=== PATIENT | female | born 1940 | race Caucasian/White ===

== ENCOUNTER 2021-06-29 14:20 | Inpatient (IN) ==
[2021-06-30] MEDS ORDERED: Famotidine 20 MG/2 ML VIAL IVP SCH (18:00)
[2021-06-30] MEDS ORDERED: Famotidine 20 MG TABLET PO ONE (22:30)
[2021-06-30] MEDS ORDERED: amLODIPine 5 MG TABLET PO ONE (22:45)
[2021-06-30] MEDS: Sucralfate 1 GM TABLET PO SCH (22:52)
[2021-06-30] MEDS: tiZANidine 4 MG TABLET PO SCH (22:52)
[2021-06-30] MEDS: Latanoprost 2.5 ML BOTTLE LEFT EYE SCH (22:52)
[2021-07-01] MEDS ORDERED: Famotidine 20 MG TABLET PO ONE (06:00)
[2021-07-01] MEDS: Aspirin 81 MG TAB.CHEW PO SCH (09:25)
[2021-07-01] MEDS: Loratadine 10 MG TABLET PO SCH (09:25)
[2021-07-01] MEDS: Sucralfate 1 GM TABLET PO SCH ×2 (09:25→21:57)
[2021-07-01] MEDS: polyethylene glycoL 3350 17 GM POWD.PACK PO SCH (09:25)
[2021-07-01] MEDS ORDERED: Ondansetron 4 MG/2 ML VIAL ONE (09:48)
[2021-07-01] MEDS: Ondansetron 4 MG/2 ML VIAL IVP PRN (09:53)
[2021-07-01] MEDS: Famotidine 20 MG/2 ML VIAL IVP SCH (16:37)
[2021-07-01] MEDS ORDERED: amLODIPine 5 MG TABLET PO ONE (21:30)
[2021-07-01] MEDS: tiZANidine 4 MG TABLET PO SCH (21:58)
[2021-07-01] MEDS: Latanoprost 2.5 ML BOTTLE LEFT EYE SCH (21:58)
[2021-07-02] MEDS ORDERED: *HR* Enoxaparin 40 MG/0.4 ML SYRINGE SQ SCH (06:00)
[2021-07-02] MEDS: Famotidine 20 MG/2 ML VIAL IVP SCH ×2 (06:12→16:24)
[2021-07-02 07:16] LABS: Basophils % 0.2 %; Eosinophils # 0.1 K/mcL (0.0-0.6); Eosinophils % 1.7 %; Hemoglobin 8.3 g/dL (11.5-15.4); Lymphocytes # 1.9 K/mcL (0.6-4.6); Lymphocytes % 45.6 %; Mean Corpuscular HGB Conc 33.2 g/dL (31.6-35.5); Mean Corpuscular Hemoglobin 32.7 pg (28.0-33.3); Mean Corpuscular Volume 98.4 fL (83.0-100.0); Mean Platelet Volume 9.9 fL (9.4-12.4); Monocytes # 0.5 K/mcL (0.0-1.3); Monocytes % 12.7 %; Neutrophils # 1.7 K/mcL (1.6-8.9); Platelet Count 192 K/mcL (140-400); Red Blood Count 2.54 M/mcL (3.82-4.97); Red Cell Distribution Width 12.9 % (11.5-14.5); Segmented Neutrophils % 39.8 %; White Blood Count 4.2 K/mcL (4.3-11.1)
[2021-07-02] MEDS: polyethylene glycoL 3350 17 GM POWD.PACK PO SCH ×2 (09:08→16:58)
[2021-07-02] MEDS: Aspirin 81 MG TAB.CHEW PO SCH (09:08)
[2021-07-02] MEDS: Loratadine 10 MG TABLET PO SCH (09:09)
[2021-07-02] MEDS: amLODIPine 5 MG TABLET PO SCH (09:09)
[2021-07-02] MEDS: Sucralfate 1 GM TABLET PO SCH ×2 (09:09→22:59)
[2021-07-02 09:13] LABS: Iron 45 mcg/dL (50-170)
[2021-07-02] MEDS: Ondansetron 4 MG/2 ML VIAL IVP PRN (18:38)
[2021-07-02] MEDS ORDERED: *HR* Promethazine 25 MG/ML VIAL IM ONE (22:31)
[2021-07-02] MEDS: tiZANidine 4 MG TABLET PO SCH (22:50)
[2021-07-02] MEDS: Latanoprost 2.5 ML BOTTLE LEFT EYE SCH (22:59)
[2021-07-03] MEDS: Famotidine 20 MG/2 ML VIAL IVP SCH ×2 (06:06→19:37)
[2021-07-03] MEDS: Aspirin 81 MG TAB.CHEW PO SCH (10:07)
[2021-07-03] MEDS: Sucralfate 1 GM TABLET PO SCH ×2 (10:07→21:04)
[2021-07-03] MEDS: Loratadine 10 MG TABLET PO SCH (10:08)
[2021-07-03] MEDS: polyethylene glycoL 3350 17 GM POWD.PACK PO SCH (10:08)
[2021-07-03] MEDS: amLODIPine 5 MG TABLET PO SCH (10:09)
[2021-07-03] MEDS: Latanoprost 2.5 ML BOTTLE LEFT EYE SCH (21:04)
[2021-07-03] MEDS: tiZANidine 4 MG TABLET PO SCH (21:04)
[2021-07-04] MEDS: Famotidine 20 MG/2 ML VIAL IVP SCH ×2 (06:27→18:54)
[2021-07-04] MEDS: Sucralfate 1 GM TABLET PO SCH ×2 (09:17→20:55)
[2021-07-04] MEDS: Aspirin 81 MG TAB.CHEW PO SCH (09:17)
[2021-07-04] MEDS: amLODIPine 5 MG TABLET PO SCH (09:17)
[2021-07-04] MEDS: Loratadine 10 MG TABLET PO SCH (09:17)
[2021-07-04] MEDS: polyethylene glycoL 3350 17 GM POWD.PACK PO SCH (09:18)
[2021-07-04] MEDS: tiZANidine 4 MG TABLET PO SCH (20:54)
[2021-07-04] MEDS: Latanoprost 2.5 ML BOTTLE LEFT EYE SCH (20:57)
[2021-07-05 02:50] LABS: % Iron Saturation 20 % (15-50); Transferrin 159 mg/dL (203-362)
[2021-07-05] MEDS: Famotidine 20 MG/2 ML VIAL IVP SCH ×2 (06:12→17:02)
[2021-07-05] MEDS: Sucralfate 1 GM TABLET PO SCH ×2 (09:28→20:57)
[2021-07-05] MEDS: amLODIPine 5 MG TABLET PO SCH (09:28)
[2021-07-05] MEDS: Aspirin 81 MG TAB.CHEW PO SCH (09:28)
[2021-07-05] MEDS: polyethylene glycoL 3350 17 GM POWD.PACK PO SCH (09:28)
[2021-07-05] MEDS: Loratadine 10 MG TABLET PO SCH (09:28)
[2021-07-05] MEDS: tiZANidine 4 MG TABLET PO SCH (20:58)
[2021-07-05] MEDS: Latanoprost 2.5 ML BOTTLE LEFT EYE SCH (21:05)
[2021-07-06] MEDS: Famotidine 20 MG/2 ML VIAL IVP SCH ×2 (06:30→18:29)
[2021-07-06] MEDS: amLODIPine 5 MG TABLET PO SCH (08:59)
[2021-07-06] MEDS: Sucralfate 1 GM TABLET PO SCH ×2 (08:59→20:27)
[2021-07-06] MEDS: polyethylene glycoL 3350 17 GM POWD.PACK PO SCH (08:59)
[2021-07-06] MEDS: Aspirin 81 MG TAB.CHEW PO SCH (08:59)
[2021-07-06] MEDS: Loratadine 10 MG TABLET PO SCH (08:59)
[2021-07-06] MEDS: Sennosides/Docusate Sodium TABLET PO SCH ×2 (12:28→20:27)
[2021-07-06] MEDS: tiZANidine 4 MG TABLET PO SCH (20:27)
[2021-07-06] MEDS: Latanoprost 2.5 ML BOTTLE LEFT EYE SCH (20:33)
[2021-07-07 05:43] LABS: Hemoglobin 8.2 g/dL (11.5-15.4); Mean Corpuscular HGB Conc 32.8 g/dL (31.6-35.5); Mean Corpuscular Hemoglobin 32.5 pg (28.0-33.3); Mean Corpuscular Volume 99.2 fL (83.0-100.0); Mean Platelet Volume 9.9 fL (9.4-12.4); Platelet Count 241 K/mcL (140-400); Red Blood Count 2.52 M/mcL (3.82-4.97); Red Cell Distribution Width 12.7 % (11.5-14.5); White Blood Count 4.9 K/mcL (4.3-11.1)
[2021-07-07] MEDS: Famotidine 20 MG/2 ML VIAL IVP SCH (06:22)
[2021-07-07 06:57] LABS: BUN/Creatinine Ratio 26 (6-26); Blood Urea Nitrogen 14 mg/dL (8-23); Calcium 8.3 mg/dL (8.6-10.3); Carbon Dioxide 26 mEq/L (23-29); Chloride 106 mEq/L (98-107); Glucose 86 mg/dL (70-105); Osmolality,Calculated 286 (280-300); Potassium 3.4 mEq/L (3.5-5.1); Sodium 138 mEq/L (136-145); eGFR For African Americans > 60 (> 60); eGFR For Non-African Americans > 60 (> 60)
[2021-07-07] MEDS: Sucralfate 1 GM TABLET PO SCH ×2 (08:32→20:52)
[2021-07-07] MEDS: Sennosides/Docusate Sodium TABLET PO SCH ×2 (08:32→20:53)
[2021-07-07] MEDS: polyethylene glycoL 3350 17 GM POWD.PACK PO SCH (08:32)
[2021-07-07] MEDS: Aspirin 81 MG TAB.CHEW PO SCH (08:32)
[2021-07-07] MEDS: Loratadine 10 MG TABLET PO SCH (08:32)
[2021-07-07] MEDS: amLODIPine 5 MG TABLET PO SCH (08:33)
[2021-07-07] MEDS: tiZANidine 4 MG TABLET PO SCH (20:52)
[2021-07-07] MEDS: Latanoprost 2.5 ML BOTTLE LEFT EYE SCH (20:53)
[2021-07-08] MEDS: Loratadine 10 MG TABLET PO SCH (09:33)
[2021-07-08] MEDS: Sucralfate 1 GM TABLET PO SCH ×2 (09:33→20:56)
[2021-07-08] MEDS: amLODIPine 5 MG TABLET PO SCH (09:34)
[2021-07-08] MEDS: Sennosides/Docusate Sodium TABLET PO SCH ×2 (09:34→20:54)
[2021-07-08] MEDS: Aspirin 81 MG TAB.CHEW PO SCH (09:34)
[2021-07-08] MEDS: polyethylene glycoL 3350 17 GM POWD.PACK PO SCH (09:35)
[2021-07-08] MEDS: Famotidine 20 MG TABLET PO SCH (09:35)
[2021-07-08] MEDS: tiZANidine 4 MG TABLET PO SCH (20:55)
[2021-07-08] MEDS: Latanoprost 2.5 ML BOTTLE LEFT EYE SCH (21:08)
[2021-07-09] MEDS: Sennosides/Docusate Sodium TABLET PO SCH ×3 (08:52→21:33)
[2021-07-09] MEDS: amLODIPine 5 MG TABLET PO SCH (08:52)
[2021-07-09] MEDS: Loratadine 10 MG TABLET PO SCH (08:53)
[2021-07-09] MEDS: Sucralfate 1 GM TABLET PO SCH ×2 (08:53→21:32)
[2021-07-09] MEDS: Aspirin 81 MG TAB.CHEW PO SCH (08:53)
[2021-07-09] MEDS: polyethylene glycoL 3350 17 GM POWD.PACK PO SCH (08:53)
[2021-07-09] MEDS: Famotidine 20 MG TABLET PO SCH (08:53)
[2021-07-09] MEDS: Ondansetron 4 MG/2 ML VIAL IVP PRN (20:53)
[2021-07-09] MEDS: tiZANidine 4 MG TABLET PO SCH (21:32)
[2021-07-09] MEDS: Latanoprost 2.5 ML BOTTLE LEFT EYE SCH (23:02)
[2021-07-10] MEDS: Famotidine 20 MG TABLET PO SCH (05:39)
[2021-07-10 07:53] LABS: Hematocrit 25.5 % (35.3-44.9); Hemoglobin 8.4 g/dL (11.5-15.4); Mean Corpuscular HGB Conc 32.9 g/dL (31.6-35.5); Mean Corpuscular Hemoglobin 32.6 pg (28.0-33.3); Mean Corpuscular Volume 98.8 fL (83.0-100.0); Mean Platelet Volume 9.5 fL (9.4-12.4); Platelet Count 225 K/mcL (140-400); Red Blood Count 2.58 M/mcL (3.82-4.97); Red Cell Distribution Width 12.9 % (11.5-14.5); White Blood Count 5.1 K/mcL (4.3-11.1)
[2021-07-10] MEDS: Aspirin 81 MG TAB.CHEW PO SCH (09:01)
[2021-07-10] MEDS: Sucralfate 1 GM TABLET PO SCH ×2 (09:01→21:11)
[2021-07-10] MEDS: Loratadine 10 MG TABLET PO SCH (09:02)
[2021-07-10] MEDS: Sennosides/Docusate Sodium TABLET PO SCH ×3 (09:02→21:12)
[2021-07-10] MEDS: amLODIPine 5 MG TABLET PO SCH (09:02)
[2021-07-10] MEDS: tiZANidine 4 MG TABLET PO SCH (21:11)
[2021-07-10] MEDS: Latanoprost 2.5 ML BOTTLE LEFT EYE SCH (21:12)
[2021-07-11] MEDS: Famotidine 20 MG TABLET PO SCH (05:49)
[2021-07-11 07:43] VITALS: O2SAT 98
[2021-07-11] MEDS: Aspirin 81 MG TAB.CHEW PO SCH (09:46)
[2021-07-11] MEDS: Loratadine 10 MG TABLET PO SCH (09:46)
[2021-07-11] MEDS: Sennosides/Docusate Sodium TABLET PO SCH ×3 (09:46→20:08)
[2021-07-11] MEDS: Sucralfate 1 GM TABLET PO SCH ×2 (09:47→20:07)
[2021-07-11] MEDS: amLODIPine 5 MG TABLET PO SCH (09:47)
[2021-07-11] MEDS: Latanoprost 2.5 ML BOTTLE LEFT EYE SCH (20:08)
[2021-07-11] MEDS: tiZANidine 4 MG TABLET PO SCH (20:08)
[2021-07-12] MEDS: Famotidine 20 MG TABLET PO SCH (06:01)
[2021-07-12] MEDS: Loratadine 10 MG TABLET PO SCH (07:28)
[2021-07-12] MEDS: amLODIPine 5 MG TABLET PO SCH (07:28)
[2021-07-12] MEDS: Aspirin 81 MG TAB.CHEW PO SCH (07:28)
[2021-07-12] MEDS: Sennosides/Docusate Sodium TABLET PO SCH (07:28)
[2021-07-12] MEDS: Sucralfate 1 GM TABLET PO SCH (07:28)
[2021-07-12 07:49] VITALS: BP 111/66; PULSE 59; RESP 18; TEMP 98.4
== END 2021-07-12 14:00 | disposition home health service (06) | DRG 945 ==
LOC: INPPIK 06-30 16:24
PROVIDERS: ADMIT Family Medicine; ATTEND Family Medicine